=== PATIENT | female | born 1985 | race Caucasian/White ===

== ENCOUNTER → 2021-12-06 | Outpatient (REF) | payer OTHER | LOC: M LAB REF 16:04 | PROVIDERS: ATTEND Nurse Practitioner Family | DX: B37.3 Candidiasis of vulva and vagina (principal) ==

== ENCOUNTER → 2024-09-05 | Outpatient (CLI) | payer OTHER ==
[2024-09-08 16:29] LABS: MUMPS VIRUS IgG ANTIBODY < 9.00 AU/mL (>10.99)
== END ==
LOC: M LAB 15:38
PROVIDERS: ATTEND Registered Nurse
DX: Z13.89 Encounter for screening for other disorder (principal)